=== PATIENT | male | born 1970 | race Asian ===

== ENCOUNTER 2022-03-12 10:24 | Emergency (ER) | payer BC ==
[~2022-03-12] VITALS: Ht 177.8 cm; Wt 99.8 kg
--- NOTE | 2022-03-12 10:36 | NUR ---
BIB [facility] 37,C/O EPIGASTRIC PAIN AND PANIC ATTACK WHILE DRIVING. PT AMBULATED TO BED WITH STEADY GAIT. AA0X4. DENIES ANY CHEST PAIN OR SOB AT THIS TIME. PT PLACED IN GLOVE TURNER AND FORMER. VITAL SIGNS STABLE.
--- NOTE | 2022-03-12 10:39 | NUR ---
DR. SOLER AT BED SIDE
--- NOTE | 2022-03-12 10:56 | NUR ---
IV ESTABLISHED 20G LAC, BLOOD DRAWN AND SENT TO LAB.
--- NOTE | 2022-03-12 10:57 | NUR ---
X-RAY AT BEDSIDE.
[2022-03-12] MEDS ORDERED: PANTOPRAZOLE 40 MG VIAL IV ONE (11:00)
[2022-03-12] MEDS ORDERED: MAG HYDROX/AL HYDROX/SIMETH 30 ML UDC PO ONE (11:00)
[2022-03-12] MEDS ORDERED: LIDOCAINE VISCOUS 2% UD 15 ML UDC MM ONE (11:00)
[2022-03-12] MEDS ORDERED: PANTOPRAZOLE 40 MG VIAL ONE (11:06)
[2022-03-12] MEDS ORDERED: MAG HYDROX/AL HYDROX/SIMETH 30 ML UDC ONE (11:06)
[2022-03-12] MEDS ORDERED: LIDOCAINE VISCOUS 2% UD 15 ML UDC ONE (11:06)
--- NOTE | 2022-03-12 11:24 | NUR ---
URINE COLLECTED AND SENT TO LAB
[2022-03-12 11:31] LABS: BASOPHILS # (AUTO) 0.1 K/uL (0.0-0.2); BASOPHILS % (AUTO) 1.2 % (0.0-2.0); EOSINOPHILS % (AUTO) 4.8 % (0.0-6.0); HEMATOCRIT 46 % (39-51); HEMOGLOBIN 14.9 g/dL (13.5-17.5); MEAN CORPUSCULAR HGB CONC 33 g/dl (31.0-36.0); MEAN CORPUSCULAR VOLUME 90 fL (80-96); MONOCYTES # (AUTO) 0.5 K/uL (0.1-1.30); MONOCYTES % (AUTO) 8.9 % (2.0-12.0); NEUTROPHILS # (AUTO) 3.4 K/uL (1.8-8.9); NEUTROPHILS % (AUTO) 65.1 % (43.0-81.0); PLATELET COUNT (AUTO) 217 K/uL (150-450); RED BLOOD CELL COUNT(AUTO) 5.09 MIL/uL (4.5-6.0); WHITE BLOOD COUNT (AUTO) 5.2 K/uL (4.3-11.0)
[2022-03-12 12:03] LABS: ALANINE AMINOTRANSFERASE 21 U/L (12-78); ALBUMIN 3.9 g/dL (3.4-5.0); ALKALINE PHOSPHATASE 48 U/L (46-116); ASPARTATE AMINOTRANSFERASE 17 U/L (15-37); BILIRUBIN,DIRECT 0.2 mg/dL (0.0-0.2); BILIRUBIN,TOTAL 0.6 mg/dL (0.2-1.0); CALCIUM, SERUM 8.7 mg/dL (8.5-10.1); CARBON DIOXIDE 26 mmol/L (21-32); CHLORIDE 104 mmol/L (98-107); CREATININE 1.1 mg/dL (0.6-1.3); GLUCOSE 132 mg/dL (74-106); LIPASE 99 U/L (73-393); POTASSIUM 3.5 mmol/L (3.5-5.1); SODIUM SERUM 138 mmol/L (136-145); TOTAL PROTEIN, SERUM 6.8 g/dL (6.4-8.2); UREA NITROGEN, BLOOD 16 mg/dL (7-18)
--- NOTE | 2022-03-12 12:51 | NUR ---
IV removed. Catheter intact and site benign. Pressure and 4x4 applied to site. No bleeding noted.
[2022-03-12 12:57] VITALS: BP 142/85
--- NOTE | 2022-03-12 12:57 | NUR ---
Patient discharged to home in stable condition. Written and verbal after care instructions given. Patient verbalizes understanding of instruction.
== END 2022-03-12 12:58 | disposition home or self-care (01) ==
LOC: ER 10:26
DX: R10.13 Epigastric pain (principal); R07.89 Other chest pain; K21.9 Gastro-esophageal reflux disease without esophagitis
CPT/HCPCS: 99285; 96374; 71045; 93005; 85025; 80048; 83690; 80076; 36415; 84484; 83880; C9113